=== PATIENT | female | born 1955 | race Caucasian/White ===

== ENCOUNTER 2017-02-19 09:00 | Day surgery (SDC) | payer OTHER ==
[~2017-02-19] VITALS: Ht 154.9 cm; Wt 67.2 kg
[2017-02-19 10:35] VITALS: Ht 154.9 cm; Wt 67.2 kg
[2017-02-19] MEDS ORDERED: ATORVASTATIN (10:46)
[2017-02-19 10:50] VITALS: BP 125/58; PULSE 74; RESP 20
[2017-02-19 11:10] VITALS: BP 103/53; PULSE 61; RESP 18
[2017-02-19] MEDS ORDERED: MIDAZOLAM 1 MG/ML 2 ML INJ ONE ×2 (11:13)
[2017-02-19] MEDS ORDERED: FENTAnyl 50 MCG/ML VIAL ONE (11:13)
--- NOTE | 2017-02-19 13:57 | GILP ---
DATE OF PROCEDURE: NAME OF PROCEDURE: Colonoscopy. SURGEON: Rachel Jacobs MD PREOPERATIVE DIAGNOSIS: Screening colonoscopy. POSTOPERATIVE DIAGNOSES: 1. Colonoscopy all the way to the cecum. 2. Internal hemorrhoids. 3. No colon neoplasm was identified. INDICATION FOR THE PROCEDURE: Ms. John Gallegos is a 61-year-old female patient who was scheduled for screening colonoscopy. The procedure and possible complications are well explained to the patient. The patient understood and consented to the procedure. DESCRIPTION OF PROCEDURE: Under the influence of fentanyl and Versed, the colonoscope was carefully introduced in the rectum and under direct vision, it was advanced all the way to the cecum. FINDINGS: The patient had internal hemorrhoids. No colon neoplasm was identified. She tolerated the procedure very well, and there was no complication from the procedure. At the end of the procedures, she was awake with stable vital signs and she was discharged home to the care of her family. IMPRESSION: 1. Colonoscopy all the way to the cecum. 2. Internal hemorrhoids. 3. No colon neoplasm was identified. PLAN: Next screening colonoscopy in 10 years. Dictated By: RACHEL LORA/NA Conf#: [id number] DID#: [id number]
== END 2017-02-19 13:01 | disposition home or self-care (01) ==
LOC: GIL 09:00
PROVIDERS: ATTEND Internal Medicine Gastroenterology
DX: Z12.11 Encounter for screening for malignant neoplasm of colon (principal); K64.8 Other hemorrhoids
CPT/HCPCS: 45378; J2250; J3010; Z7610